=== PATIENT | female | born 1955 | race Caucasian/White ===

== ENCOUNTER 2016-09-11 09:03 | Day surgery (SDC) | payer MEDICAID, OTHER ==
[2016-09-10 15:57] VITALS: Ht 157.5 cm; Wt 65.0 kg
[2016-09-11] VITALS (8 sets, daily range): BP systolic 109–131; BP diastolic 50–76; PULSE 62–85; RESP 14–18
[~2016-09-11] VITALS: Ht 157.5 cm; Wt 65.0 kg
[~2016-09-11 09:03] MED LIST: CEFAZOLIN 1 GM INJ ONE; CEFAZOLIN 2 GM/50 ML (PMX) 50 ML IVPB SCH; SOD CHLORIDE 0.9% 1,000 ML IV SCH
[2016-09-11 10:40] LABS: BASOPHILS % 0.3 % (0.0-2.0); EOSINOPHILS # 0.2 10^3/ul (0.0-0.5); EOSINOPHILS % 2.8 % (0.0-7.0); HEMATOCRIT 37.6 % (37.0-47.0); HEMOGLOBIN 12.5 g/dl (12.0-16.0); LYMPHOCYTES # 1.4 10^3/ul (0.8-2.9); LYMPHOCYTES % 20.1 % (15.0-51.0); MEAN CORPUSCULAR HEMOGLOBIN 29.9 pg (29.0-33.0); MEAN CORPUSCULAR HGB CONC 33.2 g/dl (32.0-37.0); MEAN PLATELET VOLUME 8.8 fl (7.4-10.4); MONOCYTE # 0.6 10^3/ul (0.3-0.9); MONOCYTES % 8.6 % (0.0-11.0); NEUTROPHIL # 4.9 10^3/ul (1.6-7.5); NEUTROPHILS % 67.9 % (39.0-77.0); PLATELET COUNT 407 10^3/UL (140-415); RED BLOOD COUNT 4.18 10^6/ul (4.20-5.40); RED CELL DISTRIBUTION WIDTH 12.3 % (11.5-14.5); WHITE BLOOD COUNT 7.2 10^3/ul (4.8-10.8)
[2016-09-11 10:58] LABS: INR 0.93; PROTIME 12.5 Sec (12.2-14.2)
[2016-09-11 10:59] LABS: PARTIAL THROMBOPLASTIN TIME 31.6 Sec (25.0-35.0)
[2016-09-11 11:00] LABS: ALBUMIN 4.8 g/dl (3.3-4.9); ALBUMIN/GLOBULIN RATIO 1.65; BILIRUBIN,INDIRECT 0.2 mg/dl (0-1.1); BILIRUBIN,TOTAL 0.2 mg/dl (0.2-1.3); TOTAL PROTEIN 7.7 g/dl (6.1-8.1)
[2016-09-11 11:04] LABS: POTASSIUM 3.9 mmol/L (3.5-5.1)
[2016-09-11 11:05] LABS: CREATININE 0.84 mg/dl (0.44-1.00)
[2016-09-11] MEDS ORDERED: LIDOCAINE 1% (MDV) 20 ML INJ ONE (12:36)
[2016-09-11] MEDS ORDERED: PROPOFOL 20 ML ONE (12:36)
[2016-09-11] MEDS ORDERED: MIDAZOLAM 1 MG/ML 2 ML INJ ONE (12:36)
[2016-09-11] MEDS ORDERED: ONDANSETRON 4 MG INJ ONE (12:58)
[2016-09-11] MEDS ORDERED: DEXAMETHASONE 4 MG/ML 1 ML INJ ONE (12:58)
[2016-09-11] MEDS ORDERED: KETOROLAC 30 MG INJ ONE (12:58)
[2016-09-11] MEDS ORDERED: BUPIVACAINE 0.25%/EPI (SDV) 30 ML INJ ONE (13:00)
[2016-09-11] MEDS ORDERED: HYDROmorphONE (0.2 MG/ML) 10ML SYG IV PRN ×2 (13:30)
--- NOTE | 2016-09-11 14:27 | RADRPT ---
PROCEDURE: XR Chest. CLINICAL INDICATION: Preoperative. History of breast cancer. TECHNIQUE: Single frontal view. COMPARISON: 11/25/2012. FINDINGS: The right breast is absent. There is a tunneled implanted port left internal jugular vein catheter with the tip in the cavoatrial junction region. The lungs are clear. The heart size is normal. There is calcification in the aorta consistent with atherosclerosis. There is no pleural effusion. There is no pneumothorax. IMPRESSION: 1. Status post right mastectomy. 2. Central line in satisfactory position. 3. Atherosclerosis. 4. Clear lungs. RPTAT: QQ .Hayden Wilcox MD, MD Date Time Electronically viewed and signed by .Hayden Wilcox MD, on 09/11/2016 14:26 .R/
--- NOTE | 2016-09-11 19:06 | RADRPT ---
Vent Rate: 66 bpm RR Interval: 0 msec IN Interval: 154 msec QRS Duration: 84 msec QT Interval: 398 msec QTC Interval: 417 msec P-R-T [place]: 50 - 37 - 61 degrees Normal sinus rhythm Normal ECG Electronically Signed By: Peter Siu [id number]
--- NOTE | 2016-09-12 02:58 | OPR ---
DATE OF OPERATION: 09/11/2016 PREOPERATIVE DIAGNOSIS: History of right breast cancer; need for chemotherapy port removal. POSTOPERATIVE DIAGNOSIS: History of right breast cancer; need for chemotherapy port removal. PROCEDURE: Removal of chemotherapy port from left subclavian position. ANESTHESIA: General. ANESTHESIOLOGIST: Niles Garcia MD SURGEON: Perez Dutta MD STEREO OPERATOR: None. INDICATIONS FOR PROCEDURE: The patient is known to me. She is a 61-year-old female who previously who I previously treated for invasive cancer of her right breast. She successfully completed her treatment and requested removal of her port. She consented and was scheduled for surgery. DESCRIPTION OF PROCEDURE: The patient was brought to the operating theater and placed under general anesthesia. The left anterior thoracic region was prepped and draped in the usual sterile fashion. The patient was then put in Trendelenburg position. The previous surgical incisional scar was then incised with a 15 blade scalpel. Subcutaneous tissue was dissected with a combination of cautery and sharp dissection. The pseudocapsule surrounding the port was incised, the port was gently dissected from the surrounding tissue and gently removed while pressure was held in an infraclavicular location. This port appeared grossly intact. It was sent for gross pathologic analysis to confirm that it was intact. The wound was then irrigated. Minimal bleeding was controlled with cautery and then the skin was then reapproximated with 2-0 nylon sutures in a vertical mattress fashion and local anesthetic was then injected around the incision of 2 percent lidocaine with epinephrine. A sterile dressing was then applied. The patient tolerated procedure well. The estimated blood loss was 5 mL. There were no complications and the patient was transferred in stable condition to the recovery room. Dictated By: Perez Dutta MD /oj/flory /Document#: [id number]
== END 2016-09-11 14:50 | disposition home or self-care (01) ==
LOC: SDS 09:03
PROVIDERS: ATTEND Surgery Surgical Oncology
DX: Z45.2 Encounter for adjustment and management of vascular access device (principal); Z85.3 Personal history of malignant neoplasm of breast
CPT/HCPCS: 36590; 71010; 80053; 85025; 85610; 85730; 88300; 93005; J0690; J1100; J2250; J2405; Z7512; Z7610; J1885